=== PATIENT | female | born 1935 | race Caucasian/White ===

== ENCOUNTER 2020-05-15 13:46 | Observation (INO) ==
[2020-05-15] MEDS ORDERED: Naloxone 0.4 MG/ML INJ IVP PRN ×2 (14:35→18:57)
[2020-05-15] MEDS ORDERED: Ondansetron 4 MG/2 ML VIAL IVP PRN ×2 (14:35→18:57)
[2020-05-15] MEDS ORDERED: 0.9 % Sodium Chloride 1,000 ML IVC SCH (14:45)
[2020-05-15] MEDS ORDERED: Bupivacaine 0.5%-Epi 1:200,000 50 ML VIAL ONE (15:18)
[2020-05-15 16:04] LABS: Basophils # 0.1 K/mcL (0.0-0.2); Basophils % 0.7 %; Eosinophils # 0.1 K/mcL (0.0-0.6); Eosinophils % 1.3 %; Hematocrit 34.1 % (35.3-44.9); Immature Granulocytes % 0.8 % (0-4); Lymphocytes # 1.6 K/mcL (0.6-4.6); Mean Corpuscular HGB Conc 32.3 g/dL (31.6-35.5); Mean Corpuscular Volume 102.4 fL (83.0-100.0); Monocytes # 0.9 K/mcL (0.0-1.3); Monocytes % 11.5 %; Platelet Count 350 K/mcL (140-400); Red Blood Count 3.33 M/mcL (3.82-4.97); Red Cell Distribution Width 12.8 % (11.5-14.5); Segmented Neutrophils % 64.7 %; White Blood Count 7.7 K/mcL (4.3-11.1)
[2020-05-15] MEDS ORDERED: *HR* Propofol 200 MG/20 ML VIAL IVP ONE (16:12)
[2020-05-15] MEDS ORDERED: Dexamethasone 4 MG/ML VIAL ONE (16:12)
[2020-05-15] MEDS ORDERED: *HR* FentaNYL (PF) 100 MCG/2 ML VIAL ONE ×2 (16:12→18:26)
[2020-05-15] MEDS ORDERED: Lidocaine -MPF 2% 2 ML VIAL ONE (16:12)
[2020-05-15] MEDS ORDERED: Ondansetron 4 MG/2 ML VIAL ONE (16:12)
[2020-05-15 16:26] LABS: BUN/Creatinine Ratio 33 (6-26); Blood Urea Nitrogen 26 mg/dL (8-23); Calcium 9.7 mg/dL (8.6-10.3); Carbon Dioxide 25 mEq/L (23-29); Chloride 101 mEq/L (98-107); Glucose 98 mg/dL (70-105); Osmolality,Calculated 289 (280-300); Potassium 5.1 mEq/L (3.5-5.1); Sodium 137 mEq/L (136-145); eGFR For African Americans > 60 (> 60); eGFR For Non-African Americans > 60 (> 60)
[2020-05-15 16:39] LABS: INR 1.4; Prothrombin Time 15.5 Seconds (9.4-12.1)
[2020-05-15 16:59] LABS: Adenovirus Not Detected (Not Detect); Bordetella Pertussis Not Detected (Not Detect); Chlamydophila pneumoniae Not Detected (Not Detect); Coronavirus 229E Not Detected (Not Detect); Coronavirus HKU1 Not Detected (Not Detect); Coronavirus NL63 Not Detected (Not Detect); Coronavirus OC43 Not Detected (Not Detect); Human Metapneumovirus Not Detected (Not Detect); Human Rhinovirus/Enterovirus Not Detected (Not Detect); Influenza A Subtype 2009 H1 Not Detected (Not Detect); Influenza B Not Detected (Not Detect); Mycoplasma pneumoniae Not Detected (Not Detect); Parainfluenza Virus 1 Not Detected (Not Detect); Parainfluenza Virus 2 Not Detected (Not Detect); Parainfluenza Virus 3 Not Detected (Not Detect); Parainfluenza Virus 4 Not Detected (Not Detect); Respiratory Syncytial Virus Not Detected (Not Detect); SARS-CoV-2 Not Detected (Not Detect)
[2020-05-15] MEDS ORDERED: CeFAZolin Syr 2,000MG/20 ML 2,000 MG/20 ML SYRINGE IVPB ONE (17:11)
[2020-05-15] MEDS ORDERED: *HR* HYDROmorphone PF 0.5 MG/0.5 ML SYRINGE IVP PRN (17:46)
[2020-05-15] MEDS ORDERED: *HR* OxyCODONE Immed Rel 5 MG TABLET PO PRN (17:46)
[2020-05-15] MEDS ORDERED: *HR* PHENYLEPHRINE 1,000 MCG/10 ML SYRINGE IVP ONE (18:09)
[2020-05-15] MEDS ORDERED: *HR* OxyCODONE/APAP 10/325 TABLET PO PRN (18:57)
[2020-05-15] MEDS: Furosemide 40 MG TABLET PO SCH (20:23)
[2020-05-15] MEDS: carvediloL 6.25 MG TABLET PO SCH (20:23)
[2020-05-16 05:28] LABS: Basophils % 0.2 %; Hematocrit 30.2 % (35.3-44.9); Immature Granulocytes % 0.7 % (0-4); Lymphocytes # 0.6 K/mcL (0.6-4.6); Lymphocytes % 10.2 %; Mean Corpuscular HGB Conc 33.1 g/dL (31.6-35.5); Mean Corpuscular Hemoglobin 33.8 pg (28.0-33.3); Mean Platelet Volume 8.9 fL (9.4-12.4); Monocytes # 0.4 K/mcL (0.0-1.3); Monocytes % 6.8 %; Neutrophils # 4.6 K/mcL (1.6-8.9); Platelet Count 304 K/mcL (140-400); Red Blood Count 2.96 M/mcL (3.82-4.97); Red Cell Distribution Width 12.8 % (11.5-14.5); Segmented Neutrophils % 82.1 %; White Blood Count 5.6 K/mcL (4.3-11.1)
[2020-05-16] MEDS: carvediloL 6.25 MG TABLET PO SCH ×2 (09:16→21:37)
[2020-05-16] MEDS: Furosemide 40 MG TABLET PO SCH ×2 (09:17→21:37)
[2020-05-16] MEDS: lisinopriL 5 MG TABLET PO SCH (09:17)
[2020-05-16] MEDS: *HR* OxyCODONE/APAP 5/325 TABLET PO PRN ×2 (13:24→21:38)
[2020-05-17] MEDS: *HR* OxyCODONE/APAP 5/325 TABLET PO PRN ×2 (05:15→13:30)
[2020-05-17] MEDS: carvediloL 6.25 MG TABLET PO SCH (09:19)
[2020-05-17] MEDS: Furosemide 40 MG TABLET PO SCH (09:19)
[2020-05-17] MEDS: lisinopriL 5 MG TABLET PO SCH (09:20)
[2020-05-17 11:47] VITALS: BP 106/46
== END 2020-05-17 15:53 | disposition home health service (06) ==
LOC: 3ANU
PROVIDERS: ADMIT Surgery; ATTEND Surgery